=== PATIENT | male | born 2000 | race Caucasian/White ===

== ENCOUNTER 2023-02-13 12:25 | Emergency (ER) | payer OTHER ==
[~2023-02-13] VITALS: Ht 160 cm; Wt 70.3 kg
--- NOTE | 2023-02-13 12:50 | NUR ---
Patient triaged and placed in waiting room. VSS and patient appears in no acute distress at this time. Accompanied by MOTHER, awaiting available bed, and MD notified of need for MSE.
--- NOTE | 2023-02-13 12:57 | NUR ---
DR. ASTORGA IN TO ASSESS PT.
[2023-02-13] MEDS ORDERED: IBUP-1971 PO (13:14)
[2023-02-13] MEDS ORDERED: SOM350 PO (13:14)
[2023-02-13 13:18] VITALS: BP_SYST 121
--- NOTE | 2023-02-13 13:22 | NUR ---
Patient given written and verbal discharge instructions and verbalizes understanding. ER MD discussed with patient the results and treatment provided. Patient in stable condition. ID arm band removed. Rx of IBUPROPHEN given. Patient educated on pain management and to follow up with PMD. Pain Scale 4/10. Opportunity for questions provided and answered. Medication side effect fact sheet provided.
[2023-02-13 13:24] VITALS: BP_SYST 128
== END 2023-02-13 13:22 | disposition home or self-care (01) ==
LOC: SED 12:25
DX: M54.50 Low back pain, unspecified (principal); Z79.899 Other long term (current) drug therapy
CPT/HCPCS: 72100-TC; 99283